=== PATIENT | female | born 1990 | race Two or more races ===

== ENCOUNTER 2019-02-05 20:43 | Emergency (ER) | payer OTHER ==
[~2019-02-05] VITALS: Ht 162.6 cm; Wt 60.3 kg
[~2019-02-05 20:43] MED LIST: [UNRECOGNIZED DRUG - CODE] PO
[2019-02-05] MEDS ORDERED: HALOPERIDOL LACTATE INJ 5 MG/ML VIAL ONE ×2 (21:38→22:04)
[2019-02-05] MEDS ORDERED: diphenhydrAMINE HCL 50 MG/ML VIAL ONE (21:38)
[2019-02-05] MEDS ORDERED: HALOPERIDOL LACTATE INJ 5 MG/ML VIAL IM ONE (22:00)
[2019-02-05] MEDS ORDERED: diphenhydrAMINE HCL 50 MG/ML VIAL IM ONE (22:00)
[2019-02-05] MEDS ORDERED: LORAZEPAM INJ 2 MG/ML VIAL ONE (22:05)
[2019-02-05 22:19] LABS: BASOPHILS # (AUTO) 0.1 /CMM (0.0-0.2); BASOPHILS % (AUTO) 0.6 % (0.0-2.0); HEMATOCRIT 41 % (33-45); HEMOGLOBIN 13.9 g/dL (11.5-14.8); LYMPHOCYTES # (AUTO) 1.2 /CMM (0.8-4.8); LYMPHOCYTES % (AUTO) 9.1 % (20.0-44.0); MEAN CORPUSCULAR HGB CONC 34 g/dl (31.0-36.0); MEAN CORPUSCULAR VOLUME 100 fL (82-100); MONOCYTES # (AUTO) 1.7 /CMM (0.1-1.30); MONOCYTES % (AUTO) 12.5 % (2.0-12.0); NEUTROPHILS # (AUTO) 10.6 /CMM (1.8-8.9); NEUTROPHILS % (AUTO) 77.8 % (43.0-81.0); PLATELET COUNT (AUTO) 324 /CMM (150-450); RED BLOOD CELL COUNT(AUTO) 4.15 MIL/uL (4.0-5.2); WHITE BLOOD COUNT (AUTO) 13.7 K/uL (4.3-11.0)
[2019-02-05 22:28] LABS: CARBON DIOXIDE 21 mmol/L (21-32); CHLORIDE 104 mmol/L (98-107); CREATININE 1.5 mg/dL (0.6-1.3); GLUCOSE 115 mg/dL (74-106); POTASSIUM 3.8 mmol/L (3.5-5.1); SODIUM SERUM 142 mmol/L (136-145); UREA NITROGEN, BLOOD 28 mg/dL (7-18)
[2019-02-05] MEDS ORDERED: LORAZEPAM INJ 2 MG/ML VIAL IM ONE (22:30)
--- NOTE | 2019-02-05 22:39 | NUR ---
PT REC'D 2 CUPS OF WATER.
[2019-02-05 22:40] LABS: ALANINE AMINOTRANSFERASE 27 U/L (12-78); ALBUMIN 4.7 g/dL (3.4-5.0); ALCOHOL, BLOOD < 3 mg/dL (0-0); ALKALINE PHOSPHATASE 100 U/L (46-116); ASPARTATE AMINOTRANSFERASE 19 U/L (15-37); BILIRUBIN,DIRECT 0.2 mg/dL (0.0-0.2); BILIRUBIN,TOTAL 1.1 mg/dL (0.2-1.0); TOTAL PROTEIN, SERUM 8.2 g/dL (6.4-8.2)
--- NOTE | 2019-02-05 22:40 | NUR ---
PT AMBULATED TO THE BATHROOM WITH A STEADY GAIT. URINE SAMPLE WAS OBTAINED.
[2019-02-05 22:41] LABS: ACETAMINOPHEN < 2 ug/ml (10-30); SALICYLATE 0.8 mg/dL (2.8-20.0)
--- NOTE | 2019-02-05 22:51 | NUR ---
SECURITY IS AT THE BEDSIDE WANDING THE PT.
[2019-02-05] MEDS ORDERED: IV NS 0.9% 1,000 ML BAG IV ONE (23:00)
--- NOTE | 2019-02-05 23:30 | NUR ---
PT APPEARS TO BE RESTING COMFORTABLY WITH NO S/S OF PAIN OR DISTRESS.
--- NOTE | 2019-02-06 00:30 | NUR ---
PT LEFT FOR CT VIA [facility]
--- NOTE | 2019-02-06 00:55 | NUR ---
IN AND OUT CATH DONE. URINE SAMPLE OBTAINED.
[2019-02-06 01:06] LABS: APPEARANCE,URINE Clear (CLEAR); BILIRUBIN,URINE SMALL (NEGATIVE); BLOOD, URINE Negative Ery/uL (NEGATIVE); COLOR,URINE Yellow (YELLOW); KETONES,URINE 40 (NEGATIVE); LEUKOCYTE ESTERASE ,URINE Negative (NEGATIVE); NITRITE, URINE Negative (NEGATIVE); PH,URINE 5.5 (5.0-8.0); PROTEIN,URINE 30 mg/dl (NEGATIVE); UGLUCOSE Negative (NEGATIVE); UROBILINOGEN,URINE 0.2 EU/dL (0.2)
[2019-02-06 02:06] LABS: BACTERIA,URINE Few /HPF (None Seen); SQUAMOUS EPITHELIAL CELL,UR Few /HPF (None Seen)
--- NOTE | 2019-02-06 02:30 | NUR ---
PT WAS ABLE TO AMBULATE WITHOUT ASSISTANCE AND A SLOW STEADY GAIT. [employer] WERE SATISFIED WITH PT'S ABILITY TO AMBULATE. B MIREYA WHITTINGTON NOTIFIED THAT PT AMBUALTED WELL AND WITHOUT ASSISTANCE.
--- NOTE | 2019-02-06 02:40 | NUR ---
IV removed. Catheter intact and site benign. Pressure and 4x4 applied to site. No bleeding noted. Patient discharged to [facility] in stable condition. Written and verbal after care instructions given. Patient verbalizes understanding of instruction. PT AMBULATED OUT IN HANDCUFFS WITH A SLOW STEADY GAIT. VSS. NAD NOTED.
[2019-02-06 02:41] VITALS: BP 116/85
== END 2019-02-06 02:42 ==
LOC: ER 20:50
DX: N17.9 Acute kidney failure, unspecified (principal); F29 Unspecified psychosis not due to a substance or known physiological condition; F19.10 Other psychoactive substance abuse, uncomplicated; R79.89 Other specified abnormal findings of blood chemistry; E86.0 Dehydration; R45.1 Restlessness and agitation; R00.0 Tachycardia, unspecified; R40.4 Transient alteration of awareness
CPT/HCPCS: 36415; 70450; 80048; 80076; 80307; 80329; 81001; 82550; 84702; 84703; 85025; 96360; 96372 ×3; 99284; J1200; J1630; J2060; J7030; 80305; 81000-TC; G0480